=== PATIENT | female | born 1930 | race Caucasian/White ===

== ENCOUNTER 2018-11-03 08:59 | Inpatient (IN) | payer MEDICAID ==
[~2018-11-03] VITALS: Ht 152.4 cm; Wt 63.5 kg
[2018-11-03] MEDS ORDERED: ACETAMINOPHEN 325MG TABLET PO STA (09:12)
[2018-11-03] MEDS ORDERED: SODIUM CHLORIDE 0.9% 1000ML BAG (SEPSIS BOLUS) IV ONE (09:15)
[2018-11-03] MEDS ORDERED: PIPERACILLIN/TAZ 3.375G PREMIX 50 ML IV ONE (09:15)
[2018-11-03] MEDS ORDERED: VANCOMYCIN 1 G PREMIX 200 ML IV ONE (09:15)
[2018-11-03 09:27] LABS: HEMATOCRIT. 27.4 % (36.0-48.0); HEMOGLOBIN. 9.1 g/dL (12.0-16.0); MEAN CORPUSCULAR VOLUME 87.3 fL (81.0-99.0); MEAN PLATELET VOLUME 7.8 fl (7.4-10.4); PLATELET 399 x1000/uL (130-400); RED BLOOD CELL COUNT 3.14 mill/uL (4.2-5.4); RED CELL DISTRIBUTION WIDTH 20.2 % (11.6-14.6)
[2018-11-03 09:35] LABS: CHLORIDE 96 mEq/L (98-107); INR 1.1; PROTHROMBIN TIME 11.2 sec (9.6-11.0)
[2018-11-03 10:05] LABS: PLATELET ESTIMATE NORMAL
[2018-11-03 12:44] LABS: CLARITY URINE CLOUDY (CLEAR); COLOR URINE DARK YELLOW (YELLOW); KETONES URINE NEGATIVE (NEGATIVE); LEUKOCYTE ESTERASE URINE 3+ (NEGATIVE); NITRITE URINE POSITIVE (NEGATIVE); OCCULT BLOOD URINE 1+ (NEGATIVE); PROTEIN URINE TRACE (NEGATIVE); SPECIFIC GRAVITY URINE 1.018 (1.005-1.030)
[2018-11-03 17:00] VITALS: BP_SYST 110; BP_SYST 98; BP_DIAS 50; BP_DIAS 69
[2018-11-03] MEDS ORDERED: PIPERACILLIN/TAZOBACTAM 3.375GM/50ML PREMIX IV ONE (19:00)
[2018-11-03] MEDS ORDERED: PIPERACILLIN/TAZ 3.375G PREMIX 50 ML IV NR (19:00)
[2018-11-03] MEDS ORDERED: DEXTROSE 50% WATER 50ML SYRINGE IV PRN (19:15)
[2018-11-03] MEDS ORDERED: MAGNESIUM/ALUMINUM HYDROXIDE/SIMETHICONE 30ML UDC PO PRN (19:15)
[2018-11-03] MEDS ORDERED: IPRATROPIUM/ALBUTEROL 0.5-3(2.5)MG/3ML NEB INH PRN (19:15)
[2018-11-03] MEDS ORDERED: DIPHENHYDRAMINE 50MG/ML VIAL IV PRN (19:15)
[2018-11-03] MEDS ORDERED: NA PHOS,M-B/NA PHOS,DI-BA ENEMA 118ML PR PRN (19:15)
[2018-11-03] MEDS ORDERED: VANCOMYCIN 1 G PREMIX 200 ML IV SCH (19:15)
[2018-11-03] MEDS ORDERED: CLONIDINE 0.1MG TABLET PO PRN (19:15)
[2018-11-03] MEDS ORDERED: GUAIFENESIN 200MG/10ML SUGAR FREE UDC PO PRN (19:15)
[2018-11-03] MEDS ORDERED: ACETAMINOPHEN 650MG SUPP PR PRN (19:15)
[2018-11-03] MEDS ORDERED: ACETAMINOPHEN 650MG/20.3ML UDC GT PRN (19:15)
[2018-11-03] MEDS ORDERED: DOCUSATE SODIUM 100MG CAPSULE PO PRN (19:15)
[2018-11-03 20:00] VITALS: BP 120/62
[2018-11-03] MEDS: BLOOD SUGAR DIAGNOSTIC STRIP TEST SCH (20:13)
[2018-11-03] MEDS: INSULIN LISPRO 100 UNITS/ML SUBCUT SCH (20:15)
[2018-11-03] MEDS: PIPERACILLIN/TAZ 2.25G PREMIX 50 ML IV SCH (20:16)
[2018-11-03] MEDS: ACETAMINOPHEN 325MG TABLET PO PRN (20:25)
[2018-11-03] MEDS ORDERED: ENOXAPARIN 30MG/0.3ML SYR SUBCUT SCH (21:00)
[2018-11-03] MEDS: HYDROCODONE/ACETAMINOPHEN 5/325MG TABLET PO PRN (21:58)
[2018-11-03] MEDS: SODIUM CHLORIDE 0.9% INJ 3ML FLUSH IVF SCH (22:01)
[2018-11-03] MEDS ORDERED: TAMS0.4C31 PO (22:28)
[2018-11-03] MEDS ORDERED: AMLO10TA80 PO (22:29)
[2018-11-03] MEDS ORDERED: ONDA4TAB50 PO (22:31)
[2018-11-03] MEDS ORDERED: APIX2.5T PO (22:39)
[2018-11-03] MEDS ORDERED: FURO20TA4 PO (22:40)
[2018-11-03] MEDS ORDERED: CLOP75TA33 PO (22:41)
[2018-11-03] MEDS ORDERED: GABA-529 PO (22:41)
[2018-11-03] MEDS ORDERED: METO25TA6 PO (22:42)
[2018-11-04] VITALS: BP 118/50
[2018-11-04] MEDS: PIPERACILLIN/TAZ 2.25G PREMIX 50 ML IV SCH ×4 (02:16→20:48)
[2018-11-04 04:00] VITALS: BP 135/56
[2018-11-04 06:12] LABS: CHLORIDE 100 mEq/L (98-107)
[2018-11-04 06:16] LABS: BASOPHILS % 1.2 % (0.0-2.0); EOSINOPHILS % 1.5 % (0.0-5.0); HEMATOCRIT. 23.2 % (36.0-48.0); HEMOGLOBIN. 7.9 g/dL (12.0-16.0); LYMPHOCYTES % 16.9 % (20.0-50.0); MEAN CORPUSCULAR HEMOGLOBIN 29.9 pg (28.0-32.0); MEAN CORPUSCULAR VOLUME 88.4 fL (81.0-99.0); MEAN PLATELET VOLUME 8.4 fl (7.4-10.4); MONOCYTES % 7.4 % (2.0-8.0); PLATELET 324 x1000/uL (130-400); RED BLOOD CELL COUNT 2.63 mill/uL (4.2-5.4); RED CELL DISTRIBUTION WIDTH 19.2 % (11.6-14.6)
[2018-11-04 06:25] LABS: LDL CHOLESTEROL 51 mg/dL (5-100)
[2018-11-04 06:27] LABS: HDL CHOLESTEROL 34 mg/dL (40-59)
[2018-11-04] MEDS: SODIUM CHLORIDE 0.9% INJ 3ML FLUSH IVF SCH ×3 (06:29→20:58)
[2018-11-04] MEDS: ACETAMINOPHEN 325MG TABLET PO PRN (06:29)
[2018-11-04] MEDS: BLOOD SUGAR DIAGNOSTIC STRIP TEST SCH ×4 (07:55→20:51)
[2018-11-04 08:00] VITALS: BP 135/50
[2018-11-04] MEDS: INSULIN LISPRO 100 UNITS/ML SUBCUT SCH ×4 (08:02→20:47)
[2018-11-04] MEDS: ONDANSETRON HCL 4MG/2ML INJ IV PRN (09:05)
[2018-11-04] MEDS ORDERED: VANCOMYCIN 500 MG PREMIX 100 ML IV SCH (10:00)
[2018-11-04 12:00] VITALS: BP 143/59
[2018-11-04] MEDS ORDERED: MEDICATION NOT ON FORMULARY EA (Clopidogrel Bisulfate (Clopidogrel) 75 MG) PO SCH (15:30)
[2018-11-04 16:00] VITALS: BP 136/60
[2018-11-04] MEDS: CLOPIDOGREL 75MG TABLET PO SCH (16:11)
[2018-11-04] MEDS: AMLODIPINE 10MG TABLET PO SCH (16:11)
[2018-11-04] MEDS: APIXABAN 2.5 MG TABLET PO SCH (16:11)
[2018-11-04 20:00] VITALS: BP 130/55
[2018-11-04] MEDS: HYDROCODONE/ACETAMINOPHEN 5/325MG TABLET PO PRN (20:46)
[2018-11-04] MEDS ORDERED: TAMSULOSIN HCL 0.4MG SR CAPSULE PO SCH (21:00)
[2018-11-05] VITALS: BP 126/59
[2018-11-05] MEDS: PIPERACILLIN/TAZ 2.25G PREMIX 50 ML IV SCH ×3 (02:16→15:26)
[2018-11-05 04:00] VITALS: BP 130/60
[2018-11-05] MEDS: SODIUM CHLORIDE 0.9% INJ 3ML FLUSH IVF SCH ×2 (06:01→14:00)
[2018-11-05] MEDS: BLOOD SUGAR DIAGNOSTIC STRIP TEST SCH ×2 (06:59→12:22)
[2018-11-05] MEDS: INSULIN LISPRO 100 UNITS/ML SUBCUT SCH ×2 (07:28→13:13)
[2018-11-05 08:00] VITALS: BP 150/66
[2018-11-05] MEDS: APIXABAN 2.5 MG TABLET PO SCH (09:21)
[2018-11-05] MEDS: ONDANSETRON HCL 4MG/2ML INJ IV PRN (09:21)
[2018-11-05] MEDS: CLOPIDOGREL 75MG TABLET PO SCH (09:22)
[2018-11-05] MEDS: AMLODIPINE 10MG TABLET PO SCH (09:22)
[2018-11-05] MEDS ORDERED: VANCOMYCIN 750 MG PREMIX 150 ML IV SCH (10:00)
[2018-11-05 12:00] VITALS: BP 140/56
[2018-11-05] MEDS ORDERED: AMPI2VIA PO (12:43)
[2018-11-05 15:00] VITALS: BP 140/56
[2018-11-05 16:00] VITALS: BP 127/60
[2018-11-06] MEDS ORDERED: VANCOMYCIN 500 MG PREMIX 100 ML IV SCH (02:00)
== END 2018-11-05 17:00 | disposition home or self-care (01) | DRG 720 ==
LOC: ER 08:59 → 7WST 12:49 → EDBEDREQ 13:01 → EDBEDREQSVC 13:02 → ENRESERV 14:54
PROVIDERS: ADMIT Family Medicine; ATTEND Family Medicine
DX: A41.9 Sepsis, unspecified organism (principal); N17.0 Acute kidney failure with tubular necrosis; G93.41 Metabolic encephalopathy; E44.0 Moderate protein-calorie malnutrition; I48.91 Unspecified atrial fibrillation; E78.00 Pure hypercholesterolemia, unspecified; E78.5 Hyperlipidemia, unspecified; R53.2 Functional quadriplegia; E87.1 Hypo-osmolality and hyponatremia; I10 Essential (primary) hypertension; I25.2 Old myocardial infarction; N39.0 Urinary tract infection, site not specified; Z74.01 Bed confinement status; Z96.641 Presence of right artificial hip joint; Z89.432 Acquired absence of left foot; B96.1 Klebsiella pneumoniae [K. pneumoniae] as the cause of diseases classified elsewhere
CPT/HCPCS: 36415; 71045; 80061; 80202; 82962; 83605; 84484; 85018; 87077; 87186; 93005; 96365; 96375; 97162; 97530; 99285; C1893; J1650; J1815; J2405; J2543; J3370; J7030; J7050